=== PATIENT | male | born 1955 | race Caucasian/White ===

== ENCOUNTER → 2017-01-24 | Outpatient (CLI) | payer OTHER ==
--- NOTE | 2017-01-24 17:31 | PCVCIMAG ---
APPROVED REPORT Study performed: 01/24/2017 14:04:32 EXAM: Comprehensive 2D, Doppler, and color-flow Echocardiogram Patient Location: Echo lab Status: routine BSA: 2.39 HR: 66 bpmBP: 158/94 mmHg Rhythm: NSR Other Information Study Quality: Technically Limited Technically limited study due to body habitus. Risk Factors: Cardiac Risk Factors: HTN Indications CAD Cardiomyopathy HOCM 2D Dimensions LVEF(%): 36.30 (>50%) IVSd: 15.15 (7-11mm) LVDd: 46.32 mm PWd: 15.26 (7-11mm)Ascending Ao: 39.97 (22-36mm) LVDs: 38.27 (25-40mm) Left Atrium: 44.79 (27-40mm) Aortic Root: 36.32 mm LV Single Plane 4CH: 46.06 % LV Single Plane 2CH: 34.61 %Morales's LVEF: 40.33 % Biplane EF: 39.4 % Volumes Left Atrial Volume (Systole) Single Plane 4CH: 112.50 mLSingle Plane 2CH: 100.92 mL LA ESV Index: 45.00 mL/m2 Mitral Valve E/A Ratio: 0.9 MV Decel. Time: 220.66 ms MV E Max Kai.: 0.58 m/s MV A Kai.: 0.68 m/s IVRT: 124.57 ms Pulmonary Valve PV Peak Kai.: 0.93 m/sPV Peak Gr.: 3.45 mmHg Pulmonary Vein P Vein S: 0.39 m/sP Vein A: 0.28 m/s P Vein D: 0.52 m/sP Vein A Dur.: 145.3 msec P Vein S/D Ratio: 0.75 Tricuspid Valve TR Peak Kai.: 2.14 m/s TR Peak Gr.: 18.29 mmHg Left Ventricle The left ventricle is normal size. Significant LVOT obstructive gradient present. There is normal LV segmental wall motion. Moderate concentric left ventricular hypertrophy.worse septally some KEISHA Left ventricular systolic function is mildly decreased. LVEF is 45-50%. Grade I - abnormal relaxation pattern. Right Ventricle The right ventricle is normal size. The right ventricular systolic function is normal. Atria Left atrium is moderately dilated. The right atrium size is normal. Aortic Valve LVOT at rest velocity- 3.5 m/s and peak gradient 50 mmHg. LVOT w/valsalva velocity- 5.0 m/s and peak gradient 102 mmHg. No aortic regurgitation is present. There is no aortic valvular stenosis. Mitral Valve AGNIESZKA of anterior mitral valve leaflet with obstructive LVOT gradients. Trace mitral regurgitation. No evidence of mitral valve stenosis. Tricuspid Valve The tricuspid valve is normal in structure. Trace tricuspid regurgitation with PAP of 25 mmHg. Pulmonic Valve The pulmonary valve is normal in structure. There is no pulmonic valvular regurgitation. Great Vessels The aortic root is normal in size. IVC is normal in size and collapses with >50% inspiration Pericardium There is no pericardial effusion. <Conclusion> The left ventricle is normal size. Significant LVOT obstructive gradient present. Moderate concentric left ventricular hypertrophy.worse septally some KEISHA Left ventricular systolic function is mildly decreased. LVEF is 45-50%. Grade I - abnormal relaxation pattern. Left atrium is moderately dilated. LVOT at rest velocity- 3.5 m/s and peak gradient 50 mmHg. LVOT w/valsalva velocity- 5.0 m/s and peak gradient 102 mmHg. There is no aortic valvular stenosis. AGNIESZKA of anterior mitral valve leaflet with obstructive LVOT gradients. Trace tricuspid regurgitation with PAP of 25 mmHg. There is no pericardial effusion.
== END | disposition home or self-care (01) ==
LOC: PCVCIMAG 13:53
PROVIDERS: ATTEND Internal Medicine Cardiovascular Disease
DX: I08.1 Rheumatic disorders of both mitral and tricuspid valves (principal); I25.10 Atherosclerotic heart disease of native coronary artery without angina pectoris; I10 Essential (primary) hypertension; I42.1 Obstructive hypertrophic cardiomyopathy
CPT/HCPCS: 93306

== ENCOUNTER → 2018-02-09 | Outpatient (CLI) | payer OTHER ==
--- NOTE | 2018-02-09 17:17 | PCVCIMAG ---
APPROVED REPORT Study performed: 02/09/2018 07:59:13 EXAM: Comprehensive 2D, Doppler, and color-flow Echocardiogram Patient Location: Echo lab Status: routine BSA: 2.29 HR: 58 bpmBP: 136/84 mmHg Rhythm: NSR Other Information Study Quality: Adequate Technically limited study due to body habitus. Risk Factors: Cardiac Risk Factors: Hyperlipidemia, HTN Indications Murmur CAD Cardiomyopathy 2D Dimensions LVEF(%): 55.00 (>50%) IVSd: 11.73 (7-11mm)LVOT Diam: 22.00 (18-24mm) LVDd: 44.25 mm PWd: 12.26 (7-11mm)Ascending Ao: 40.12 (22-36mm) LVDs: 27.32 (25-40mm) Left Atrium: 53.63 (27-40mm) Aortic Root: 33.35 mm LV Single Plane 4CH: 56.01 % LV Single Plane 2CH: 51.08 %Morales's LVEF: 53.54 % Biplane EF: 54.1 % Volumes Left Atrial Volume (Systole) Single Plane 4CH: 88.37 mLSingle Plane 2CH: 93.21 mL LA ESV Index: 41.00 mL/m2 Aortic Valve AoV Peak Kai.: 1.81 m/s AO Peak Gr.: 13.06 mmHg Mitral Valve E/A Ratio: 0.9 MV Decel. Time: 232.11 ms MV E Max Kai.: 0.59 m/s MV A Kai.: 0.69 m/s IVRT: 79.58 ms TDI E/Lateral E': 8.43E/Medial E': 14.75 Medial E' Kai.: 0.04 m/s Lateral E' Kai.: 0.07 m/s Pulmonary Valve PV Peak Kai.: 1.25 m/sPV Peak Gr.: 6.25 mmHg Pulmonary Vein P Vein S: 0.35 m/sP Vein A: 0.22 m/s P Vein D: 0.43 m/sP Vein A Dur.: 103.8 msec P Vein S/D Ratio: 0.81 Left Ventricle The left ventricle is normal size. There is significant LVOT obstructive gradient present. There is normal LV segmental wall motion. Mild-moderate concentric left ventricular hypertrophy with some KEISHA. The left ventricular systolic function is normal. The left ventricular ejection fraction is within the normal range. LVEF is 50-55%. Grade I - abnormal relaxation pattern. Right Ventricle The right ventricle is normal size. The right ventricular systolic function is normal. Atria The left atrium is mildy-moderately dilated. The right atrium size is normal. Aortic Valve The aortic valve is normal in structure. The peak LVOT velocity at rest is 3.2 m/sec and peak gradient is 40 mmHg. The LVOT velocity with valsalva is 4.3 m/sec and peak gradient is 73 mmHg. No aortic regurgitation is present. There is no aortic valvular stenosis. Mitral Valve AGNIESZKA of anterior mitral valve leaflet with obstructive LVOT gradients. Trace mitral regurgitation. No evidence of mitral valve stenosis. Tricuspid Valve The tricuspid valve is normal in structure. Trace tricuspid regurgitation. Unable to assess PA pressure. Pulmonic Valve The pulmonary valve is normal in structure. There is no pulmonic valvular regurgitation. Great Vessels The aortic root is normal in size. The ascending aorta is borderline dilated at 4.0 cm. IVC is not well visualized. Pericardium There is no pericardial effusion. <Conclusion> The left ventricle is normal size. There is significant LVOT obstructive gradient present. Mild-moderate concentric left ventricular hypertrophy with some KEISHA. LVEF is 50-55%. Grade I - abnormal relaxation pattern. The right ventricle is normal size. The left atrium is mildy-moderately dilated. The aortic valve is normal in structure. The peak LVOT velocity at rest is 3.2 m/sec and peak gradient is 40 mmHg. The LVOT velocity with valsalva is 4.3 m/sec and peak gradient is 73 mmHg. There is no aortic valvular stenosis. Trace mitral regurgitation. The tricuspid valve is normal in structure. The aortic root is normal in size. There is no pericardial effusion.
== END | disposition home or self-care (01) ==
LOC: PCVCIMAG 07:54
PROVIDERS: ATTEND Internal Medicine Cardiovascular Disease
DX: I10 Essential (primary) hypertension (principal); I25.10 Atherosclerotic heart disease of native coronary artery without angina pectoris
CPT/HCPCS: 93306

== ENCOUNTER → 2019-03-26 | Outpatient (CLI) | payer OTHER ==
--- NOTE | 2019-03-28 17:52 | PCVCIMAG ---
APPROVED REPORT Study performed: 03/26/2019 15:46:35 Exam: Stress Echocardiogram Indication: Hyperlipidemia, Hypertension Patient Location: Echo lab Stress Nurse: Brenda Mills RN Status: routine Ht: 5 ft 10 in HR: 77 bpm BP: 140/88 mmHg Medical History Medical History: Hypertrophic obstruction cardiomyopathy, Murmur, cad, angina Procedure The patient underwent an Exercise Stress Test using the Ronnie Protocol. Blood pressure, heart rate, and EKG were monitored. An Echocardiogram was performed by senior wind turbine technician in four stages in quad fashion. At peak stress, four selected images were obtained and placed side by side with resting images for comparison. Stress Test Details Stress Test: Exercise stress testing was performed using a Ronnie protocol. HR Resting HR: 77 bpmMax Heart Rate (APMHR): 156 bpm Max HR Achieved: 122 bpmTarget HR (85% APMHR): 132 bpm % of APMHR: 78 Recovery HR: 78 bpm HR response to stress: Normal HR response to stress BP Resting BP: 140/88 mmHg Max BP: 152/88 mmHg Recovery BP: 142/78 mmHg BP response to stress: Normal blood pressure response to stress. ECG Resting ECG: Sinus Rhythm, ST-T wave abnormality Stress ECG: Sinus Rhythm, ST-T wave abnormality Recovery ECG: Sinus Rhythm, ST-T wave abnormality Clinical Reason for Termination: Maximal effort Exercise duration: 6 min 43 sec Highest Stage Achieved: Stage 3: 3.4 mph at 14% grade. Exercise capacity: 9.20 METs Overall Exercise Capacity for Age: Normal Pre-Stress Echo The resting Echocardiogram showed normal left ventricular contractility with an estimated Ejection Fraction of about 55-60%. Normal wall motion in all segments on baseline images. Post-Stress Echo The stress Echocardiogram showed normal left ventricular contractility with an estimated Ejection Fraction of about 60-65%. Normal augmentation of wall motion in all segments on post stress images. Clinical No clinical or ECG evidence for ischemia. Conclusion Clinical Response: Non-ischemic Exercise Capacity: Below Average Stress ECG Response: Non-ischemic Stress Echo Images: Non-ischemic The left ventricle is normal in size. Wall thickness is moderately thickenened both the rest and stress images. Left ventricular outflow gradient rest 71mmHg. Left ventricular outflow rest valsalva 104mmHg. Left ventricular outflow gradient post exercise 123mmHg. Ascending aorta mildly dilated measuring 4.2cm to 4.4.cm. Other Information Study Quality: Technically Difficult <Conclusion> The left ventricle is normal in size. Wall thickness is moderately thickenened both the rest and stress images. Left ventricular outflow gradient rest 71mmHg. Left ventricular outflow rest valsalva 104mmHg. Left ventricular outflow gradient post exercise 123mmHg. Ascending aorta mildly dilated measuring 4.2cm to 4.4.cm.
== END | disposition home or self-care (01) ==
LOC: PCVCIMAG 15:16
PROVIDERS: ATTEND Internal Medicine Cardiovascular Disease
DX: I10 Essential (primary) hypertension (principal); E78.5 Hyperlipidemia, unspecified
CPT/HCPCS: 93325; 93351